=== PATIENT | female | born 1965 | race American Indian/Alaskan Native ===

== ENCOUNTER 2017-08-20 09:49 | Outpatient (CLI) | payer OTHER ==
--- NOTE | 2017-08-20 10:57 | XRay Report ---
Bilateral shoulders: Bilateral shoulder pain. There is focal spurring over the right tuberosity. The articulating margin of the humerus is smooth as is the glenoid fossa with good preservation of the joint space. The subacromial space is preserved. The bones are well-mineralized. Similar spurring is identified over the tuberosity of the left humerus. The findings are otherwise unremarkable. Impression: Mild degenerative changes restricted to the greater tuberosity region bilaterally.
--- NOTE | 2017-08-20 10:58 | XRay Report ---
PA and lateral chest: Back pain, fatigue. Spondylosis is present from the mid to lower thoracic spine. The bony structures are otherwise unremarkable. The lungs are clear. The heart is normal in size. Impression: Thoracic spondylosis. No acute finding.
== END 2017-08-20 09:50 | disposition home or self-care (01) ==
LOC: XRAY 09:49
PROVIDERS: ATTEND Internal Medicine
DX: M47.894 Other spondylosis, thoracic region (principal); M19.011 Primary osteoarthritis, right shoulder; M19.012 Primary osteoarthritis, left shoulder; I11.9 Hypertensive heart disease without heart failure; D64.9 Anemia, unspecified; F32.9 Major depressive disorder, single episode, unspecified; F41.9 Anxiety disorder, unspecified; E66.9 Obesity, unspecified; R45.83 Excessive crying of child, adolescent or adult; F91.8 Other conduct disorders; F16.983 Hallucinogen use, unspecified with hallucinogen persisting perception disorder (flashbacks); R06.02 Shortness of breath; R53.83 Other fatigue
CPT/HCPCS: 71020